=== PATIENT | male | born 1950 | race Caucasian/White ===

== ENCOUNTER → 2017-05-23 | Day surgery (SDC) | payer OTHER ==
[~2017-05-23] MED LIST: BUPIVACAINE HCL PF 0.75% 30 ML VIAL ONE; DEXAMETHASONE SOD PHOS 4 MG/ML VIAL IV ONE; EPINEPHrine HCL (1:1000) 30 MG/30 ML VIAL ONE; LACTATED RINGER'S 1000 ML INJ 1,000 ML ONE; LIDOCAINE 1.5%/EPINEPHrine 1:200,000 PF SOLN 30 ML AMP ONE; MIDAZOLAM HCL 5 MG/ML VIAL (1 ML) ONE; PROPOFOL 200 MG/20 ML AMP IV ONE; ceFAZolin 2 GM PREMIX 50 ML ONE
--- NOTE | 2017-05-24 06:31 | MP ---
cc: MICHELLE TOM M.D. DATE OF SURGERY 05/23/2017 PREOPERATIVE DIAGNOSES 1. Right shoulder rotator cuff tear. 2. Right shoulder impingement syndrome. 3. Right shoulder SLAP labral tear. 4. Right shoulder chondromalacia of glenohumeral joint. 5. Right shoulder osteoarthritis of acromioclavicular joint. POSTOPERATIVE DIAGNOSES 1. Right shoulder rotator cuff tear. 2. Right shoulder impingement syndrome. 3. Right shoulder SLAP labral tear. 4. Right shoulder chondromalacia of glenohumeral joint. 5. Right shoulder osteoarthritis of acromioclavicular joint. PROCEDURE 1. Right shoulder arthroscopic rotator cuff repair. 2. Right shoulder arthroscopic subacromial decompression. 3. Right shoulder arthroscopic extensive debridement of his labral tear. 4. Right shoulder arthroscopic chondroplasty of the glenohumeral joint. 5. Right shoulder arthroscopic distal clavicle excision. SURGEON Dr. Michelle Tom GRAIN PACKER Samuel Contreras PA-C ANESTHESIA General with an interscalene block. ESTIMATED BLOOD LOSS Less than 50 cc. COMPLICATIONS None. IMPLANTS USED Arthrex. JUSTIFICATION This patient is a 67-year-old male who injured his right shoulder. He has had persistent pain in regards to this condition. He has failed conservative treatment. Clinical exam as well as MRI confirmed the above-named findings. The patient was counseled as to the risks, benefits and alternatives to the above-named surgical procedure. He did wish to proceed with surgery. PROCEDURE IN DETAIL Written consent was obtained. The patient was identified by name, taken to the operating room, placed supine on the operating room table. General anesthesia was administered as well as 2 grams of IV Ancef. He did receive preoperative anterior scalene block. The patient was carefully turned to the left lateral decubitus position, a lateral arm roll was placed. All bony pounds and pressure points were well padded. An arthroscopic arm silveira was gently applied to the right upper extremity with 10 pounds of traction placed, the right shoulder prepped and draped using isopropyl alcohol, Hibiclens solution and DuraPrep solution. After a time-out was performed, a standard posterior and anterior glenohumeral arthroscopic portal was established. The glenohumeral joint revealed evidence of significant labral tearing along the anterior and superior positions. An arthroscopic shaver was introduced from the anterior border and extensive debridement was performed to include the anterior 3 o'clock position up to the superior 12 o'clock position, back down to the posterior 9 o'clock position. There was evidence of chondromalacia above the glenoid and labrum and a chondroplasty of this region was performed with a smooth shaver. Attention was turned to the undersurface of the rotator cuff tear where the tear was debrided with an arthroscopic shaver as well. Attention was turned to the subacromial space. There was evidence of significant impingement, bursitis with a Type 3 acromion. An arthroscopic shaver was inserted into the lateral portal. A subacromial decompression was performed. The shaver was used to perform extensive bursectomy. The arthroscopic bur was used to perform an acromioplasty and the cautery device was used to release the coracoacromial ligament. The bur was then used to perform a distal clavicle resection. The bur was initially placed from a lateral portal, then subsequently from anterior portal to remove 1-cm of the distal clavicle. There was evidence of full-thickness rotator cuff tendon tear along the border and interval between the supraspinatus and infraspinatus tendons. The tear was elevated and debrided. An arthroscopic bur was used to debride and decorticate the greater tuberosity in preparation for rotator cuff tendon repair. An Arthrex Scorpion device was used to shuttle a #2 FiberTape suture in a horizontal mattress pattern through the torn tendon. A #2 FiberLink suture was also placed. The sutures were then placed through the eyelet of an Arthrex 4.75 mm Bio-SwiveLock anchor. The sutures were tensioned and the anchor was inserted in the greater tuberosity for repair. There was good purchase and fixation at the insertion of the anchor and the repair was probed and noted to have good stability. At the conclusion of the procedure, the arthroscopic portals were closed with 3-0 Prolene suture. Sterile dressings were applied. The patient was placed in a sling and swath immobilizer. He tolerated the procedure with no intraoperative complications noted. Michelle Contreras, physician environmental engineering assistant certified, was present during the entire procedure to include patient positioning and the procedure itself. The medical necessity of the physician environmental engineering assistant was indicated in this case due to the complexity of the procedure. He assisted with appropriate manipulation of the arm and camera. He assisted with shuttling the sutures and insertion of suture anchors for the purposes of rotator cuff tendon repair. MD CELIO Remy/BENY /2:57 PM /6:01 AM
== END | disposition home or self-care (01) ==
LOC: ESDC 12:02
PROVIDERS: ATTEND Orthopaedic Surgery Sports Medicine
DX: M75.121 Complete rotator cuff tear or rupture of right shoulder, not specified as traumatic (principal); M75.41 Impingement syndrome of right shoulder; S43.431A Superior glenoid labrum lesion of right shoulder, initial encounter; M94.211 Chondromalacia, right shoulder; M19.011 Primary osteoarthritis, right shoulder
CPT/HCPCS: 01630; 01991; 29823; 29824; 29826; 29827; 64417; C1713; J0171; J0690; J1100; J2250; J7120